=== PATIENT | female | born 1950 ===

== ENCOUNTER 2018-02-16 11:44 | Outpatient (CLI) | payer OTHER ==
[~2018-02-16 11:44] MED LIST: SYNTHROID150 MCG PO
== END 2018-02-16 11:52 | disposition home or self-care (01) ==
LOC: MAMO-SONO 11:44
DX: Z12.31 Encounter for screening mammogram for malignant neoplasm of breast (principal); Z87.898 Personal history of other specified conditions; N64.89 Other specified disorders of breast

== ENCOUNTER 2018-02-22 11:21 | Outpatient (CLI) | payer OTHER | END 2018-02-22 11:29 | disposition home or self-care (01) | LOC: SONOGRAMA 11:21 | DX: N63.21 Unspecified lump in the left breast, upper outer quadrant (principal); N60.11 Diffuse cystic mastopathy of right breast; N60.12 Diffuse cystic mastopathy of left breast ==

== ENCOUNTER 2018-04-09 06:50 | Day surgery (SDC) | payer OTHER | END 2018-04-09 20:10 | disposition home or self-care (01) | LOC: CIR.AMB 06:50 | DX: C50.412 Malignant neoplasm of upper-outer quadrant of left female breast (principal) ==

== ENCOUNTER → 2018-04-22 | Emergency (ER) | payer OTHER ==
[~2018-04-22] VITALS: Ht 157.5 cm; Wt 87.5 kg
[~2018-04-22] MED LIST changes: +KETO10TA2 PO; +ORPHENADRINE C100 MG PO
== END | disposition home or self-care (01) ==
LOC: ER 15:07
DX: M54.2 Cervicalgia (principal); M62.838 Other muscle spasm; R20.0 Anesthesia of skin; R51 Headache

== ENCOUNTER → 2018-06-28 | Outpatient (CLI) | payer OTHER | END | disposition home or self-care (01) | LOC: TOM 09:52 | DX: C50.412 Malignant neoplasm of upper-outer quadrant of left female breast (principal) | CPT/HCPCS: 70492; 71270; 74178; Q9965 ==

== ENCOUNTER → 2018-10-07 | Outpatient (CLI) | payer OTHER | END | disposition home or self-care (01) | LOC: NUCLEAR 11:00 | DX: M81.0 Age-related osteoporosis without current pathological fracture (principal) ==

== ENCOUNTER 2019-02-01 09:14 | Outpatient (CLI) | payer OTHER | END 2019-02-01 09:19 | disposition home or self-care (01) | LOC: MAMO-SONO 09:14 → SONOGRAMA 02-02 09:15 | DX: C50.412 Malignant neoplasm of upper-outer quadrant of left female breast (principal); N60.11 Diffuse cystic mastopathy of right breast; N60.12 Diffuse cystic mastopathy of left breast; K76.81 Hepatopulmonary syndrome ==

== ENCOUNTER 2020-02-13 10:56 | Outpatient (CLI) | payer OTHER | END 2020-02-13 10:58 | disposition home or self-care (01) | LOC: MAMO-SONO 10:56 | PROVIDERS: ATTEND Surgery | DX: C50.412 Malignant neoplasm of upper-outer quadrant of left female breast (principal); N60.11 Diffuse cystic mastopathy of right breast; N60.12 Diffuse cystic mastopathy of left breast; N64.59 Other signs and symptoms in breast ==

== ENCOUNTER 2020-12-07 11:50 | Outpatient (CLI) | payer OTHER | END 2020-12-07 12:00 | disposition home or self-care (01) | LOC: RAD 11:50 | PROVIDERS: ATTEND Internal Medicine Endocrinology, Diabetes & Metabolism | DX: M54.5 Low back pain (principal); M54.6 Pain in thoracic spine ==

== ENCOUNTER → 2020-12-07 13:15 | Outpatient (CLI) | payer OTHER | END | disposition home or self-care (01) | LOC: NUCLEAR 13:15 | PROVIDERS: ATTEND Internal Medicine Endocrinology, Diabetes & Metabolism | DX: M81.0 Age-related osteoporosis without current pathological fracture (principal) ==

== ENCOUNTER 2021-02-13 10:59 | Outpatient (CLI) | payer OTHER | END 2021-02-13 11:09 | disposition home or self-care (01) | LOC: MAMO-SONO 10:59 | PROVIDERS: ATTEND Surgery | DX: N60.11 Diffuse cystic mastopathy of right breast (principal); N60.12 Diffuse cystic mastopathy of left breast; Z12.31 Encounter for screening mammogram for malignant neoplasm of breast ==

== ENCOUNTER 2021-06-13 08:34 | Outpatient (CLI) | payer OTHER | END 2021-06-13 08:46 | disposition home or self-care (01) | LOC: SONOGRAMA 08:34 | PROVIDERS: ATTEND Internal Medicine Gastroenterology | DX: K76.0 Fatty (change of) liver, not elsewhere classified (principal) ==

== ENCOUNTER 2021-12-04 10:16 | Outpatient (CLI) | payer OTHER | END 2021-12-04 10:21 | disposition home or self-care (01) | LOC: SONOGRAMA 10:16 | PROVIDERS: ATTEND Internal Medicine Endocrinology, Diabetes & Metabolism | DX: C73 Malignant neoplasm of thyroid gland (principal) ==

== ENCOUNTER 2022-02-18 11:16 | Outpatient (CLI) | payer OTHER | END 2022-02-18 11:28 | disposition home or self-care (01) | LOC: MAMO-SONO 11:16 | PROVIDERS: ATTEND Surgery | DX: N60.11 Diffuse cystic mastopathy of right breast (principal); N60.12 Diffuse cystic mastopathy of left breast; C50.412 Malignant neoplasm of upper-outer quadrant of left female breast ==

== ENCOUNTER → 2023-03-09 09:02 | Outpatient (CLI) | payer OTHER ==
[2023-03-09 09:47] LABS: URINE APPEARANCE Clear; URINE BILIRRUBIN Negative (NEGATIVE); URINE BLOOD Moderate; URINE COLOR Dark Yellow; URINE GLUCOSE Negative (NEGATIVE); URINE LEUKOCYTE Moderate; URINE NITRATE Negative; URINE PROTEIN Trace (NEGATIVE); URINE UROBILINOGEN 0.2 E.U./dl
[2023-03-09 09:48] LABS: HEMATOCRIT 41.9 % (36.0-45.00); HEMOGLOBIN 14.2 g/dL (12.0-15.00); MEAN CELL VOLUME 94.7 fL (80.00-100.00); MEAN CORPUSCULAR HGB CONC 33.8 g/dl (32.0-36.0); PLATELET COUNT 349 K/uL (150-450); RED BLOOD COUNT 4.43 M/uL (4.00-6.00)
[2023-03-09 09:51] LABS: URINE BACTERIA 526.6 uL (0.0-1933); URINE EPITHELIAL CELLS 30.2 uL (0.0-38.8); URINE RBC 40.5 uL (0.0-20.8); URINE WBC 93.2 uL (0.0-23.2)
[2023-03-09 10:47] LABS: ALBUMIN 3.6 gm/dL (3.4-5.0); BILIRUBIN TOTAL 1.3 mg/dL (0.3-1.2); CALCIUM 8.9 mg/dL (8.5-10.1); CHOL HDL RATIO 2.8 (0-5.0); CREATININE SERUM 0.92 mg/dL (0.55-1.02); GFR 59.84; TOTAL PROTEIN 7.6 gm/dL (6.4-8.2)
[2023-03-09 11:07] LABS: TSH 0.16 uIU/mL (0.358-3.74)
== END | disposition home or self-care (01) ==
LOC: LAB 09:02
PROVIDERS: ATTEND Internal Medicine Hematology & Oncology
DX: R74.01 Elevation of levels of liver transaminase levels (principal); C50.412 Malignant neoplasm of upper-outer quadrant of left female breast; E03.8 Other specified hypothyroidism; E78.00 Pure hypercholesterolemia, unspecified; C73 Malignant neoplasm of thyroid gland; R73.01 Impaired fasting glucose; E55.9 Vitamin D deficiency, unspecified; R30.0 Dysuria; Z88.6 Allergy status to analgesic agent

== ENCOUNTER 2023-03-09 11:00 | Outpatient (CLI) | payer OTHER | END 2023-03-09 11:01 | disposition home or self-care (01) | LOC: NUCLEAR 11:00 | PROVIDERS: ATTEND Internal Medicine Endocrinology, Diabetes & Metabolism | DX: M81.0 Age-related osteoporosis without current pathological fracture (principal) ==

== ENCOUNTER 2023-03-09 14:27 | Outpatient (CLI) | payer OTHER | END 2023-03-09 14:31 | disposition home or self-care (01) | LOC: MAMO-SONO 14:27 | PROVIDERS: ATTEND Surgery | DX: C50.412 Malignant neoplasm of upper-outer quadrant of left female breast (principal); N60.11 Diffuse cystic mastopathy of right breast; N60.12 Diffuse cystic mastopathy of left breast; Z12.31 Encounter for screening mammogram for malignant neoplasm of breast; E89.0 Postprocedural hypothyroidism; C73 Malignant neoplasm of thyroid gland ==

== ENCOUNTER 2024-03-15 13:45 | Outpatient (CLI) | payer OTHER | END 2024-03-15 14:42 | disposition home or self-care (01) | LOC: MAMO-SONO 13:45 | PROVIDERS: ATTEND Surgery | DX: C50.412 Malignant neoplasm of upper-outer quadrant of left female breast (principal); N60.11 Diffuse cystic mastopathy of right breast; N60.12 Diffuse cystic mastopathy of left breast; Z12.31 Encounter for screening mammogram for malignant neoplasm of breast ==

== ENCOUNTER 2025-01-12 14:56 | Outpatient (CLI) | payer OTHER | END 2025-01-12 14:58 | disposition home or self-care (01) | LOC: LAB 14:56 | PROVIDERS: ATTEND Internal Medicine Endocrinology, Diabetes & Metabolism | DX: C73 Malignant neoplasm of thyroid gland (principal) ==

== ENCOUNTER → 2025-01-12 15:27 | Outpatient (CLI) | payer OTHER | END | disposition home or self-care (01) | LOC: TOM 08:39 | PROVIDERS: ATTEND Internal Medicine Endocrinology, Diabetes & Metabolism | DX: R91.8 Other nonspecific abnormal finding of lung field (principal); C73 Malignant neoplasm of thyroid gland; R19.00 Intra-abdominal and pelvic swelling, mass and lump, unspecified site; D47.09 Other mast cell neoplasms of uncertain behavior; C49.4 Malignant neoplasm of connective and soft tissue of abdomen | CPT/HCPCS: 71260; 74177; Q9965 ==

== ENCOUNTER 2025-04-04 09:38 | Outpatient (CLI) | payer OTHER | END 2025-04-04 09:41 | disposition home or self-care (01) | LOC: MAMO-SONO 09:38 | PROVIDERS: ATTEND Surgery | DX: N60.11 Diffuse cystic mastopathy of right breast (principal); N60.12 Diffuse cystic mastopathy of left breast; Z12.31 Encounter for screening mammogram for malignant neoplasm of breast ==